=== PATIENT | female | born 1955 | race Caucasian/White ===

== ENCOUNTER 2021-06-30 19:34 | Emergency (ER) | payer BC, SELFPAY ==
[2021-06-30] MEDS: MethylPREDNISolone 125 MG/2 ML Vial IV (19:42)
[2021-06-30] MEDS: DiphenhydrAMINE 50 MG/ML Syringe 25 MG IV (19:43)
[2021-06-30] MEDS: Famotidine 200 MG/20 ML MDV 20 MG in 0.9% Normal Saline (Pres. free 8 ML 300 MG IV (19:43)
[2021-06-30 19:46] VITALS: BP 169/96; PULSE 83; PULSE 90; RESP 22; RESP 23; TEMP 36.7; O2SAT 92; BMI 31.8
[2021-06-30 20:35] VITALS: BP 188/64; PULSE 86; RESP 19; O2SAT 94
[2021-06-30 21:00] VITALS: BP 183/70; PULSE 85; RESP 21; O2SAT 94
[2021-06-30 22:00] VITALS: BP 182/83; PULSE 85; RESP 17; O2SAT 92
[2021-06-30 23:00] VITALS: BP 162/76; PULSE 84; RESP 20; O2SAT 92
[2021-07-01] VITALS: BP 156/82; PULSE 84; RESP 18; O2SAT 91
--- NOTE | 2021-07-01 00:32 | EX.ED.DYSGE1 ---
HPI History of Present Illness Chief Complaint: Allergic Reaction Detail of Chief Complaint: Stung by 4 or 5 bees or wasps Informant: patient and spouse/S.O. 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 She is not been stung over 27 years. She not have an EpiPen. She was stung by 4 or 5 bees or wasps. She presents because of facial swelling, lip swelling, shortness of breath, she denies dysphonia. She does report lightheadedness. Prior similar symptoms: Yes (27 years ago when she was stung by a bee) Recent Illness/Hospitalization: No PFSH PFSH Home Medications metoprolol tartrate 25 mg PO DAILY 09/12/13 [History Last Taken 06/29/14 08:00] epinephrine [EpiPen] 0.3 mg IM Q10M PRN PRN #1 ea 07/01/21 [Rx Last Taken Unknown] famotidine [Pepcid] 20 mg PO BID #8 tab 07/01/21 [Rx Last Taken Unknown] prednisone 40 mg PO DAILY #8 tab 07/01/21 [Rx Last Taken Unknown] Allergy/AdvReac Type Severity Reaction Status Date / Time bee venom protein (honey bee) Allergy Angioedema Verified 06/30/21 19:35 latex Allergy Rash Verified 09/12/13 16:24 Penicillins Allergy Rash Verified 09/12/13 16:24 Sulfa (Sulfonamide Allergy Rash Verified 09/12/13 16:24 Antibiotics) Surgical History History of arthroplasty of right ankle History of cholecystectomy History of colon resection History of fusion of cervical spine History of hysterectomy Social History (Updated 07/01/21 @ 00:[address] Brett Sherman MD) household members: spouse housing: house Smoking Status: Never smoker alcohol intake: current alcohol intake frequency: other substance use type: does not use ROS ROS ED Constitutional Constitutional ED: Denies chills, fever(s), subjective or sweats Eyes Eyes: Reports other Details: Swelling of the upper lids and chemosis ; Denies blurry vision, change in vision or diplopia ENT ENT ED: Denies ear pain, rhinorrhea or sore throat Cardiovascular Cardiovascular: Reports palpitations; Denies chest pain, orthopnea or racing heartbeat Respiratory/Chest Respiratory/Chest: Reports dyspnea; Denies cough, dyspnea on exertion or orthopnea Gastrointestinal Gastrointestinal: Reports abdominal pain and nausea; Denies constipation, diarrhea or vomiting Genitourinary Genitourinary ED: Denies hematuria or urinary frequency Musculoskeletal Musculoskeletal: Denies arthralgias, myalgias or neck pain Integumentary Reports rash Neurologic Neurologic: Denies headache(s) or weakness Psychiatric Psychiatric: Reports anxiety Allergic/Immunologic Allergic/Immunologic ED: Reports mouth swelling, tongue swelling and urticaria EXAM Physical Exam Const Vital Signs: 06/30/21 19:46 06/30/21 20:35 06/30/21 21:00 Temperature 98.1 F Temperature Source Temporal Pulse Rate 90 86 85 Respiratory Rate 22 H 19 H 21 H Blood Pressure 169/96 H 188/64 H 183/70 H Blood Pressure Mean 120 105 107 Pulse Ox 92 94 94 Oxygen Delivery Method Room Air Room Air 06/30/21 22:00 06/30/21 23:00 07/01/21 00:00 Temperature Temperature Source Pulse Rate 85 84 84 Respiratory Rate 17 20 H 18 Blood Pressure 182/83 H 162/76 H 156/82 H Blood Pressure Mean 116 104 106 Pulse Ox 92 92 91 Oxygen Delivery Method Room Air Room Air Room Air Positive well nourished, well developed and obese General Appearance ED: well developed Nutritional Appearance: obese HEENT HEENT Narrative: Patient has angioedema of the face. The uvula is midline. There is no angioedema of the uvula soft palate. There is evidence of chemosis. Ears are normal. Nares patent. Eyes PERRL and EOMs intact bilaterally Eyes Narrative: Positive chemosis bilaterally. General Eye ED: Negative for pale conjunctiva or scleral icterus Neck no lymphadenopathy, supple and no JVD Neck Narrative: Trachea is midline. There is no inspiratory or expiratory stridor noted. Chest Wall inspection of chest normal Resp normal respiratory effort and clear to auscultation bilaterally Effort and Inspection: Negative for pain with movement Cardio regular rate, regular rhythm, S1 normal heart sound, S2 normal heart sound and no murmurs GI normal to inspection, nondistended, normoactive bowel sounds, non-tender and non-distended Palpation: soft Back/Spine no CVA tenderness Cervical Spine: Negative for cervical spine tenderness Thoracic Spine / Upper Back: Negative for thoracic spinal tenderness Extremity normal to inspection General Extremety ED: Yes edema; Negative for tenderness General Extremity: edema Neuro oriented x3, CN's II-XII intact bilaterally and no sensory deficits noted Sensorium / Orientation: alert Motor Exam: strength 5/5 throughout Psych mental status grossly normal Skin No no rashes or lesions noted Skin Narrative: Positive urticaria MDM MDM MDM Narrative Medical decision making narrative: Patient having allergic and phylactic reaction with angioedema. She was treated with epinephrine, H1 and H2 aaron and Solu-Medrol. She has been observed for 5 hours. She was was reassessed at 200 with improvement of rash and swelling. She was reassessed at 2130 with 50% reduction of angioedema and resolution of her rash. She was again evaluated at 2240. The chemosis resolved. The swelling has improved markedly. There is no respiratory distress. Patient was reassessed at 0030. She has minimal swelling of the left upper eyelid. There are no other objective findings. Patient was discharged to home with prescription for EpiPen, prednisone and Pepcid. Critical Care Time Critical Care Time: Yes Critical care time (excluding procedures): 30-74 minutes (31 minutes), Including time spent: (History, physical, documentation, initiation of therapy for anaphylactic reaction) and Discussing w/Patient &/or Family/Accounts Payable Analyst (Patient has been informed of the importance to carry her EpiPen at all times.) Discharge Plan Triage Chief Complaint: Allergic Reaction ED Provider: Brett Sherman Dx/Rx/DC Orders Clinical Impression: Anaphylactic reaction, Allergic angioedema Instructions: ED Anaphylaxis Prescriptions: New famotidine [Pepcid] 20 mg tablet 20 mg PO BID Qty: 8 RF: 0 prednisone 20 mg tablet 40 mg PO DAILY Qty: 8 RF: 0 epinephrine [EpiPen] 0.3 mg/0.3 mL auto-injector 0.3 mg IM Q10M PRN PRN (Reason: anaphylaxis) Qty: 1 RF: 0 No Action metoprolol tartrate 25 MG tablet 25 mg PO DAILY RF: 0 Primary Care Provider: [facility] Doctor,Out of Referrals: [facility] Doctor,Out of [Primary Care Provider] - As Needed Disposition Disposition: Home, Self Care
[2021-07-01 00:54] VITALS: BP 150/80; PULSE 85; RESP 16; O2SAT 92
== END 2021-07-01 00:55 | disposition home or self-care (01) ==
PROVIDERS: Emergency Provider Emergency Medicine
DX: T78.3XXA Angioneurotic edema, initial encounter (principal); T63.441A Toxic effect of venom of bees, accidental (unintentional), initial encounter; T78.2XXA Anaphylactic shock, unspecified, initial encounter; E66.9 Obesity, unspecified
CPT/HCPCS: 96372; 96374; 96375; 99283; J7030; A4216; J3490

== ENCOUNTER 2025-02-11 18:55 | Emergency (ER) | payer BC, SELFPAY ==
[2025-02-11 18:56] VITALS: BP 214/81; PULSE 72; RESP 19; TEMP 36.2; O2SAT 98; BMI 39.3
--- NOTE | 2025-02-11 19:37 | EKG12_ITS ---
Test Reason : HOEHNE Blood Pressure : */* mmHG Vent. Rate : 67 BPM Atrial Rate : 67 BPM P-R Int : 186 ms QRS Dur : 74 ms QT Int : 436 ms P-R-T Axes : 51 -6 56 degrees QTcB Int : 460 ms Normal sinus rhythm Normal ECG Confirmed by LEXI GUTIERREZ, OLGA ([id number]), field map editor VIKTOR CHRISTY ([id number]) on 02/12/2025 8:08:25 AM Referred By: ABD PAIN Confirmed By: OLGA ELLIOTT MD
--- NOTE | 2025-02-11 19:39 | EDS_ITS ---
HPI <NADINE Louie - Last Filed: 02/11/25 22:17> History of Present Illness Chief Complaint: Abd Pain Narrative Narrative: 69-year-old female with PMH of HTN, diverticulitis has had 3 to 4 weeks of upper abdominal pain that feels like a tight bandlike pain. It it is constant but seems to be gradually worsening. When symptoms started she saw her community health program coordinator in [place] and had a normal EKG and echocardiogram and he did not think it was cardiac related. The only thing she has noticed is slightly worsened her symptoms and is drinking coffee so she switched to tea. She has no increased pain with food and no nausea or vomiting. She has had normal bowel movements without melena or hematochezia. No urinary symptoms. PFSH <NADINE Louie - Last Filed: 02/11/25 22:17> PFSH Home Medications ?Medication ?Instructions ?Recorded ?Last Taken ?Type metoprolol tartrate 25 mg tablet 50 mg PO DAILY 06/29/14 08:00 History epinephrine 0.3 mg/0.3 mL 0.3 mg (0.3 mL) IM Q10M PRN PRN 07/01/21 Unknown Rx injection, auto-injector (EpiPen) anaphylaxis #1 ea losartan 100 mg tablet 100 mg PO DAILY 02/11/25 Unk nown History pantoprazole 20 mg tablet,delayed 20 mg PO BID #28 tab s 02/11/25 Unknown Rx release (Protonix) pravastatin 20 mg tablet 20 mg PO DAILY 02/11/25 Unkn own History sucralfate 1 gram tablet (Carafate) 1 g PO Q6H #56 tab s 02/11/25 Unknown Rx Allergy/AdvReac Type Severity Reaction Status Date / Time bee venom protein (honey bee) Allergy Angioedema Verified 02/11/25 18:55 latex Allergy Rash Verified 02/11/25 18:55 Penicillins Allergy Rash Verified 02/11/25 18:55 Sulfa (Sulfonamide Allergy Rash Verified 02/11/25 18:55 Antibiotics) Surgical History History of arthroplasty of right ankle History of cholecystectomy History of colon resection History of fusion of cervical spine History of hysterectomy Social History (Updated 08/25/21 @ 00:[address] Brett Sherman MD) household members: spouse housing: house Smoking Status: Never smoker alcohol intake: current alcohol intake frequency: other substance use type: does not use ROS <NADINE Louie - Last Filed: 02/11/25 22:17> ROS ED ROS Narrative Constitutional: Negative for fever, chills, malaise. CVS: Negative for palpitations, syncope. Respiratory: Negative for shortness of breath, cough. GI: Positive for abdominal pain. No vomiting or diarrhea. : Negative for dysuria, hematuria or frequency. EXAM <NADINE Louie - Last Filed: 02/11/25 22:17> Physical Exam Narrative Exam Narrative: CONST: Patient sitting in no acute distress. EYES: Normal inspection. NECK: Normal inspection. RESP: No respiratory distress, CTAB. CVS: Regular rate and rhythm, no murmur, no gallop. ABD: Soft with epigastric tenderness, no guarding or rebound, nondistended, no hepatosplenomegaly. SKIN: Color normal, no rash, warm, dry, intact. EXTREMITIES: Normal appearance, no pedal edema. NEURO: Alert and answering questions appropriately. PSYCH: Normal affect. Const Vital Signs: 02/11/25 18:56 02/11/25 20:17 02/11/25 22:00 Temperature 97.1 F L Temperature Source Temporal Pulse Rate 72 63 Respiratory Rate 19 H 20 H Blood Pressure 214/81 H 191/69 H 150/47 H Blood Pressure Mean 125 109 77 Pulse Ox 98 95 Oxygen Delivery Method Room Air Room Air <Dr. Elia Anderson DO - Last Filed: 02/11/25 23:15> Physical Exam Const Vital Signs: 02/11/25 18:56 02/11/25 20:17 02/11/25 22:00 Temperature 97.1 F L Temperature Source Temporal Pulse Rate 72 63 Respiratory Rate 19 H 20 H Blood Pressure 214/81 H 191/69 H 150/47 H Blood Pressure Mean 125 109 77 Pulse Ox 98 95 Oxygen Delivery Method Room Air Room Air MDM <NADINE Louie - Last Filed: 02/11/25 22:17> MDM MDM Narrative Medical decision making narrative: History gathered from: Patient and spouse Differential includes but not limited to GERD, PUD, pancreatitis, diverticulitis 69-year-old female presents with 1 month of gradually worsening upper abdominal pain. She appears well and nontoxic. She is hypertensive with otherwise stable vital signs. She took her morning blood pressure meds but is due for her evening doses. Normal cardiopulmonary exam. She has midline epigastric tenderness without peritoneal signs. CBC, CMP, and lipase are unremarkable. CT scan is pending. EKG is nonischemic and troponin is 6. She also reports having an outpatient cardiology workup with EKG/echo after the symptoms started which was negative. Lab Data Attestation: I reviewed the patient's lab results. Labs: Laboratory Results - last 24 hr 02/11/25 02/11/25 20:00 22:25 WBC 7.5 RBC 4.10 L Hgb 12.2 Hct 36.5 L MCV 89.0 MCH 29.8 MCHC 33.4 RDW Std Deviation 41.2 RDW Coeff of [place] 12.6 Plt Count 212 MPV 10.0 Immature Gran % (Auto) 0.400 Neut % (Auto) 48.0 Lymph % (Auto) 40.1 Ramsey % (Auto) 8.3 Eos % (Auto) 2.7 Baso % (Auto) 0.5 Absolute Neuts (auto) 3.6 Absolute Lymphs (auto) 3.00 Nucleated RBC % 0 Sodium 138 Potassium 3.7 Chloride 102 Carbon Dioxide 23.3 Anion Gap 13 BUN 15 Creatinine 0.70 Estim Creat Clear Calc 77.24 Est GFR (MDRD) Non-Af 94 BUN/Creatinine Ratio 20.7 H Glucose 157 H Calcium 9.8 Total Bilirubin 0.24 AST 19 ALT 21 Alkaline Phosphatase 110 H Troponin T High Sens 6 Troponin T Hi Sens 2 Hr 6 Total Protein 7.4 Albumin 3.9 Globulin 3.5 Albumin/Globulin Ratio 1.1 Lipase 10 L Radiography Diagnostic Testing: Clinical Impression(s) from Imaging Studies Abdomen/Pelvis CT 02/11/25 21:29 IMPRESSION: No acute findings in the abdomen and pelvis. Reading Location: [facility] <Dr. Elia Anderson DO - Last Filed: 02/11/25 23:15> [facility] History & Record Review Discussion w/independent historian: Patient and Significant other Lab Data Labs: Laboratory Results - last 24 hr 02/11/25 02/11/25 20:00 22:25 WBC 7.5 RBC 4.10 L Hgb 12.2 Hct 36.5 L MCV 89.0 MCH 29.8 MCHC 33.4 RDW Std Deviation 41.2 RDW Coeff of [place] 12.6 Plt Count 212 MPV 10.0 Immature Gran % (Auto) 0.400 Neut % (Auto) 48.0 Lymph % (Auto) 40.1 Ramsey % (Auto) 8.3 Eos % (Auto) 2.7 Baso % (Auto) 0.5 Absolute Neuts (auto) 3.6 Absolute Lymphs (auto) 3.00 Nucleated RBC % 0 Sodium 138 Potassium 3.7 Chloride 102 Carbon Dioxide 23.3 Anion Gap 13 BUN 15 Creatinine 0.70 Estim Creat Clear Calc 77.24 Est GFR (MDRD) Non-Af 94 BUN/Creatinine Ratio 20.7 H Glucose 157 H Calcium 9.8 Total Bilirubin 0.24 AST 19 ALT 21 Alkaline Phosphatase 110 H Troponin T High Sens 6 Troponin T Hi Sens 2 Hr 6 Total Protein 7.4 Albumin 3.9 Globulin 3.5 Albumin/Globulin Ratio 1.1 Lipase 10 L Radiography Diagnostic Testing: Clinical Impression(s) from Imaging Studies Abdomen/Pelvis CT 02/11/25 21:29 IMPRESSION: No acute findings in the abdomen and pelvis. Reading Location: [facility] Treatment and Re-Evaluation :: I have personally performed a face to face assessment of the patient and have reviewed the ANISH Note. I performed a substantive portion of the visit including all aspects of the following. My garcia findings include: History is 69-year-old female presenting with recurrent upper abdominal discomfort. Patient's had cardiac workup that was negative. She has a prior cholecystectomy. Denies black or bloody stools. She notes hypertension dwayne ght. She is not on a PPI. Exam is patient is hypertension that has come down. Patient is alert no acute distress. Nonsurgical abdomen. Equal pulses in the upper and lower extremity Medical Decison Making this does not sound like mesenteric ischemia. I do not see evidence of pancreatitis or biliary disease. No elevated LFTs. She is not anemic cardiac workup is negative. I do wonder if this could be gastritis gastric ulcer or duodenal ulcer/GI pathology. I recommend placing her on a PPI and Carafate. Would have her follow-up for endoscopy/GI evaluation Discharge Plan Triage Chief Complaint: Abd Pain ED Midlevel Provider: Nikky Lara ED Provider: Elia Anderson Dx/Rx/DC Orders Clinical Impression: Epigastric abdominal pain Instructions: ED Gastritis (Adult) Prescriptions: New pantoprazole [Protonix] 20 mg tablet,delayed release (DR/EC) 20 mg PO BID Qty: 28 0RF sucralfate [Carafate] 1 gram tablet 1 g PO Q6H Qty: 56 0RF No Action metoprolol tartrate 25 MG tablet 50 mg PO DAILY Patient Comments: blood pressure *need one dose this evening epinephrine [EpiPen] 0.3 mg/0.3 mL auto-injector 0.3 mg IM Q10M PRN PRN (Reason: anaphylaxis) Qty: 1 0RF Rx Instructions: for 2 doses losartan 100 mg tablet 100 mg PO DAILY pravastatin 20 mg tablet 20 mg PO DAILY Primary Care Provider: ALKA EMERSON Referrals: Friend,Kit, DO [Med Staff - Active Staff] - As soon as possible (for GI Evaluation) Care Physician,No Primary [Non-Staff] - Print Language: Latvian Disposition Disposition: Home, Self Care
[2025-02-11] MEDS: Ondansetron 4 MG/2 ML Vial IV (19:58)
[2025-02-11] MEDS: Morphine 4 MG/ML Syringe IV (19:59)
[2025-02-11 20:12] LABS: Absolute Neutrophil Count 3.6 X10^3/uL (2.0-7.7); Basophil# 0.04 X10^3/uL; Basophil% 0.5 % (0-1); Eosinophils% 2.7 % (0-5); Hematocrit 36.5 % (37-47); Hemoglobin 12.2 g/dL (12.0-15.0); Lymphocyte % 40.1 % (19-41); Mean Corp Hgb Conc 33.4 g/dL (32-36); Mean Corpuscular Hgb 29.8 pg (27.0-32.0); Monocyte# 0.62 X10^3/uL; Monocyte% 8.3 % (0-10); NRBC Flagged by Analyzer 0 % (0-5); Neutrophil # 3.59 X10^3/uL (2.7-7.7); Platelet Count 212 K/mm3 (150-450); RBC Distribution Width CV 12.6 % (11.6-14.6); RBC Distribution Width SD 41.2 fl (35.1-43.9); White Blood Count 7.5 K/mm3 (4.4-11.0)
[2025-02-11 20:17] VITALS: BP 191/69
[2025-02-11 21:04] LABS: ALB/GLOB Ratio 1.1 RATIO (0.9-2.4); AST(SGOT) 19 U/L (<=31); Alanine Aminotransfer ALT/SGPT 21 U/L (<=34); Albumin, Serum 3.9 g/dL (3.4-4.8); Alkaline Phosphatase 110 U/L (35-104); Anion Gap 13 (5-15); BUN 15 mg/dL (4-19); BUN/Creat Ratio 20.7 RATIO (10-20); Calcium,Total 9.8 mg/dL (7.6-11.0); Carbon Dioxide 23.3 mmol/L (21.0-32.0); Chloride 102 mmol/L (98-108); EST Glomerular Filtration Rate 94 (>60); Estimated Creatinine Clearance 77.24 ml/min (50-250); Globulin 3.5 g/dL (2.2-4.2); Glucose 157 mg/dL (70-99); Lipase 10 U/L (13-75); Potassium 3.7 mmol/L (3.3-5.1); Protein, Total 7.4 g/dL (5.9-8.4); Sodium Level 138 mmol/L (133-145); Total Bilirubin 0.24 mg/dL (0.00-1.30); Troponin T High Sensitivity 6 ng/L (<=14)
--- NOTE | 2025-02-11 21:29 | CT_ITS ---
PROCEDURE: ABDOMEN/PELVIS W IV CONT ONLY 02/11/2025 REASON FOR EXAM: EPIGASTRIC PAIN TECHNIQUE: Abdomen and pelvis CT with intravenous contrast. Coronal and Sagittal reconstruction series were provided. PATIENT PREPARATION: Per protocol ORAL CONTRAST TYPE: None. AMOUNT: mL CONTRAST: Omnipaque 350 VOLUME: 100 mL Not Provided Gauge IV One or more dose reduction techniques were used (e.g., Automated exposure control, adjustment of the mA and/or kV according to patient size, use of iterative reconstruction technique. COMPARISON: None FINDINGS: Lung bases: Mild bibasilar atelectasis. Mild cardiomegaly. Liver: Hepatic steatosis. No focal lesion. Gallbladder: No intrahepatic ductal dilation. Common bile duct measures 10 mm. Spleen: Normal size. Pancreas: Normal size without evidence of mass surrounding inflammation or ductal dilation. Adrenals: Unremarkable Kidneys: Normal renal sizes. No hydronephrosis. Bilateral simple cysts. Bladder: Urinary bladder is unremarkable. Reproductive Organs: No pelvic mass. Bowel: Stomach is unremarkable. No bowel dilation or wall thickening. Prior postoperative changes partial colectomy with a rectosigmoid anastomosis. Appendix: Normal appendix. Lymph nodes: No suspicious lymph node enlargement. Vasculature: Mild diffuse atherosclerotic calcifications are noted. Peritoneum / Retroperitoneum: No ascites. No pneumoperitoneum. Bones: No suspicious osseous lesions. CT/Abdomen/Pelvis W IV Cont ONLY IMPRESSION: No acute findings in the abdomen and pelvis. Reading Location[facility]
[2025-02-11] MEDS: Famotidine 20 MG Tablet PO (21:40)
[2025-02-11] MEDS: Ketorolac 15 MG/ML Vial IV (21:40)
[2025-02-11 22:00] VITALS: BP 150/47; PULSE 63; RESP 20; O2SAT 95
[2025-02-11 22:53] LABS: Troponin T High Sens 2 HR 6 ng/L (<=14)
[2025-02-11] MEDS: Lidocaine 2% Viscous15 ML UDC 15 ML PO (23:30)
[2025-02-11] MEDS: Mag Hydrox/Al Hydrox/Simeth 30 ML UDC PO (23:30)
[2025-02-11] MEDS: Losartan Potassium 100 MG Tablet PO (23:30)
[2025-02-11] MEDS: Metoprolol Tartrate 50 MG Tablet PO (23:30)
[2025-02-11 23:53] VITALS: BP 174/55; O2SAT 94
== END 2025-02-12 00:13 | disposition home or self-care (01) ==
PROVIDERS: Physician Assistant; Emergency Provider Emergency Medicine; Visit Provider Emergency Medicine
DX: R10.13 Epigastric pain (principal); I10 Essential (primary) hypertension
CPT/HCPCS: 74177; 80053; 83690; 84484; 85025; 93005; 96374; 96375; 99282; Q9967; A4216; J2405

== ENCOUNTER 2025-05-17 11:09 | Emergency (ER) | payer MEDICARE, OTHER, SELFPAY ==
[2025-05-17 11:09] VITALS: BP 182/71; PULSE 81; RESP 14; TEMP 36.8; O2SAT 97; BMI 37.8
--- NOTE | 2025-05-17 11:54 | ED.VIS.GI ---
HPI HPI - GI History of Present Illness Chief Complaint: Abd Pain Informant: patient Abdominal Pain/Flank Pain Onset: Weeks (1) Context: Sudden Onset Timing: Continuous Quality: Dull and Sharp Location: Epigastric Worsened by: Nothing Relieved by: Nothing Nausea/Vomiting/Emesis GI Symptom: Positive for Nausea; Negative for Vomiting Diarrhea/Melena/Hematochezia GI Symptom: Negative for Diarrhea, Melena or Hematochezia Associated Symptoms Associated Symptoms: Negative for Dysuria, Frequency or Hematuria Narrative Narrative: Patient presents with abdominal pain that began 1 week ago. Patient states it began rather suddenly. Patient states it has been constant. Patient describes her pain as sharp and dull. Patient states her pain is over the epigastric area. Patient states nothing makes it better and nothing makes it worse. Patient admits to some nausea but denies any vomiting. Patient denies any diarrhea, melena, or hematochezia. Patient denies any dysuria, frequency, or hematuria. Patient states she had a recent endoscopy and was diagnosed with peptic ulcer disease and erosive gastritis. Prior similar symptoms: Yes PFSH [facility] Medical History (Updated 05/17/25 @ 13:[address] Conner Horta, DO) Erosive gastritis Gastric ulcer Home Medications ?Medication ?Instructions ?Recorded ?Last Taken ?Type metoprolol tartrate 25 mg tablet 50 mg PO DAILY 09/12/13 06/29/14 08:00 History epinephrine 0.3 mg/0.3 mL 0.3 mg (0.3 mL) IM Q10M PRN PRN 07/01/21 Unknown Rx injection, auto-injector (EpiPen) anaphylaxis #1 ea losartan 100 mg tablet 100 mg PO DAILY 02/11/25 Unknown History pantoprazole 20 mg tablet,delayed 20 mg PO BID #28 tabs 02/11/25 Unknown Rx release (Protonix) pravastatin 20 mg tablet 20 mg PO DAILY 02/11/25 Unknown History sucralfate 1 gram tablet (Carafate) 1 g PO Q6H #56 tabs 05/17/25 Unknown Rx Allergy/AdvReac Type Severity Reaction Status Date / Time bee venom protein (honey bee) Allergy Angioedema Verified 05/17/25 11:10 latex Allergy Rash Verified 05/17/25 11:10 Penicillins Allergy Rash Verified 05/17/25 11:10 Sulfa (Sulfonamide Allergy Rash Verified 05/17/25 11:10 Antibiotics) Surgical History History of fusion of cervical spine History of hysterectomy History of arthroplasty of right ankle History of cholecystectomy History of colon resection Social History (Updated 07/01/21 @ 00:[address] Brett Sherman MD) household members: spouse housing: house Smoking Status: Never smoker alcohol intake: current alcohol intake frequency: other substance use type: does not use EXAM Physical Exam Const Vital Signs: 05/17/25 11:09 05/17/25 13:09 Temperature 98.3 F Temperature Source Temporal Pulse Rate 81 66 Respiratory Rate 14 Blood Pressure 182/71 H 141/67 H Blood Pressure Mean 108 91 Pulse Ox 97 94 Oxygen Delivery Method Room Air Room Air MDM MDM MDM Narrative Medical decision making narrative: Differential diagnosis includes peptic ulcer disease, duodenal ulcer, pancreatitis, bowel obstruction, perforation, electrolyte abnormality, urinary tract infection, and pyelonephritis. CBC will be obtained to assess for leukocytosis and anemia. Comprehensive metabolic profile will be obtained to assess for hepatic function, renal function, and electrolyte abnormality. Lipase will be obtained to assess for pancreatitis. Urinalysis will be obtained to assess for urinary tract infection and hematuria. CT scan of the abdomen and pelvis will be obtained to assess for bowel obstruction, perforation, and pancreatitis. History & Record Review Additional record(s) reviewed:: Prior outpatient record, Prior ED visit and Prior labs Lab Data Attestation: I reviewed the patient's lab results. Lab results narrative: CBC was reviewed and was within normal limit. Comprehensive metabolic profile was reviewed. Glucose was mildly elevated at 183. The remainder is within normal limits. Urinalysis was reviewed. Leukocyte esterase was 25. There are 0-5 white blood cells and 5-10 epithelial cells. There is 2+ bacteria. Labs: Laboratory Results - last 24 hr 05/17/25 12:25 WBC 8.4 RBC 4.27 Hgb 13.2 Hct 38.8 MCV 90.9 MCH 30.9 MCHC 34.0 RDW Std Deviation 42.3 RDW Coeff of [place] 12.9 Plt Count 253 MPV 10.6 Immature Gran % (Auto) 0.200 Neut % (Auto) 63.0 Lymph % (Auto) 29.3 [place] % (Auto) 5.4 Eos % (Auto) 2.0 Baso % (Auto) 0.1 Absolute Neuts (auto) 5.3 Absolute Lymphs (auto) 2.46 Nucleated RBC % 0 Sodium 138 Potassium 4.1 Chloride 103 Carbon Dioxide 21.7 Anion Gap 13 BUN 12 Creatinine 0.80 Estim Creat Clear Calc 74.63 Est GFR (MDRD) Non-Af 80 BUN/Creatinine Ratio 15.1 Glucose 183 H Calcium 9.2 Total Bilirubin 0.29 AST 27 ALT 30 Alkaline Phosphatase 102 Total Protein 7.6 Albumin 4.0 Globulin 3.6 Albumin/Globulin Ratio 1.1 Urine Color Yellow Urine Clarity Sl. Cloudy Urine pH 5.0 Ur Specific [place] 1.030 Urine Protein 30 H Urine Glucose (UA) Normal Urine Ketones 5 H Urine Occult Blood Negative Urine Nitrite Negative Urine Bilirubin Negative Urine Urobilinogen Normal Ur Leukocyte Esterase 25 H Urine RBC 0 SEEN Urine WBC 0-5 SEEN Ur Squamous Epith Cells 5-10 SEEN Urine Bacteria 2+ Urine Mucus 0 SEEN Radiography Diagnostic Testing: Clinical Impression(s) from Imaging Studies Abdomen/Pelvis CT 05/17/25 12:18 IMPRESSION: 1. Normal appendix. 2. No bowel obstruction or pneumoperitoneum. 3. Hepatomegaly with fatty infiltration. 4. Fecal retention in the colon consistent with constipation. 5. No obstructive uropathy. Reading Location: [facility] CT scan of the abdomen and pelvis was obtained. There is no evidence of bowel obstruction or perforation. There is no free air or free fluid. There is fecal retention in the colon consistent with constipation. This was interpreted by the radiologist and was also independently reviewed by myself. Treatment and Re-Evaluation :: Patient was given IV fluids, Pepcid, Zofran, and morphine. Patient states she was seen here in February and morphine did not work for her pain. Patient states she was given medication that began with a T which helped. I reviewed her prior records. This was Toradol. Advised the patient that Toradol may make her peptic ulcer disease worse. Because of this, this was withheld at this time. Patient is agreeable to take morphine at this time. Patient was advised of her findings. Patient was given a prescription for Carafate. Patient was instructed to follow-up with her primary care physician and corporate securities research analyst in 5 to 7 days. Patient was instructed to continue with her omeprazole. Patient was instructed to return if worse in any way. Patient understood and was agreeable with the plan. All questions were answered. Discharge Plan Triage Chief Complaint: Abd Pain ED Provider: Conner Horta Dx/Rx/DC Orders Clinical Impression: Abdominal pain, epigastric, Peptic ulcer disease Instructions: ED Peptic Ulcer, ED Epigastric Pain Uncertain Cause Prescriptions: Continued sucralfate [Carafate] 1 gram tablet 1 g PO Q6H Qty: 56 0RF No Action metoprolol tartrate 25 MG tablet 50 mg PO DAILY Patient Comments: blood pressure *need one dose this evening epinephrine [EpiPen] 0.3 mg/0.3 mL auto-injector 0.3 mg IM Q10M PRN PRN (Reason: anaphylaxis) Qty: 1 0RF Rx Instructions: for 2 doses losartan 100 mg tablet 100 mg PO DAILY pravastatin 20 mg tablet 20 mg PO DAILY pantoprazole [Protonix] 20 mg tablet,delayed release (DR/EC) 20 mg PO BID Qty: 28 0RF Primary Care Provider: ALKA EMERSON Referrals: ALKA EMERSON [Other] - 5-7 Days Print Language: Lithuanian Disposition Disposition: Home, Self Care
--- NOTE | 2025-05-17 12:18 | CT_ITS ---
EXAM: CT Abdomen and Pelvis With Intravenous Contrast CLINICAL INDICATION: ABDOMINAL PAIN TECHNIQUE: Axial computed tomography images of the abdomen and pelvis with intravenous contrast. This CT exam was performed using one or more of the following dose reduction techniques: automated exposure control, adjustment of the mA and/or kV according to patient size, and/or use of iterative reconstruction technique. COMPARISON: CT Abdomen Pelvis dated 02/11/2025 FINDINGS: LUNG BASES: Unremarkable. No mass. No consolidation. ABDOMEN: LIVER: Hepatomegaly with fatty infiltration. GALLBLADDER AND BILE DUCTS: Gallbladder is surgically absent. No ductal dilation. PANCREAS: Unremarkable. No mass. No ductal dilation. SPLEEN: Unremarkable. No splenomegaly. ADRENALS: Unremarkable. No mass. KIDNEYS AND URETERS: Hypodense lesions of both kidneys, likely cysts. No stones within either kidney. No hydronephrosis. STOMACH AND BOWEL: Fecal retention in the colon consistent with constipation. Evidence of prior colonic surgery reanastomosis in the right hemipelvis. No mucosal thickening. No bowel obstruction or pneumoperitoneum. PELVIS: APPENDIX: Normal appendix. BLADDER: Unremarkable. No mass. REPRODUCTIVE: Unremarkable as visualized. ABDOMEN and PELVIS: INTRAPERITONEAL SPACE: See above. BONES/JOINTS: No acute fracture. No dislocation. SOFT TISSUES: Unremarkable. VASCULATURE: Scattered calcified atherosclerotic disease of aorta. No abdominal aortic aneurysm. LYMPH NODES: Unremarkable. No enlarged lymph nodes. CT/Abdomen/Pelvis W IV Cont ONLY IMPRESSION: 1. Normal appendix. 2. No bowel obstruction or pneumoperitoneum. 3. Hepatomegaly with fatty infiltration. 4. Fecal retention in the colon consistent with constipation. 5. No obstructive uropathy. Reading Location[facility]
[2025-05-17] MEDS: Lidocaine 2% Viscous15 ML UDC 15 ML PO (12:34)
[2025-05-17] MEDS: 0.9% Normal Saline (1000mL) 1,000 ML 999 ML IV (12:36)
[2025-05-17 12:49] LABS: Mucous, Urine 0 SEEN /hpf (<or=2+); Red Blood Cells-Urine 0 SEEN /hpf (0-5)
[2025-05-17 12:51] LABS: Hematocrit 38.8 % (37-47); Hemoglobin 13.2 g/dL (12.0-15.0); Immature Granulocytes Count 0.020 X10^3/uL (0.0-0.0); Mean Corp Hgb Conc 34.0 g/dL (32-36); Mean Corpuscular Volume 90.9 fL (81-99); Mean Platelet Vol. 10.6 fl (6.2-12.0); NRBC Flagged by Analyzer 0 % (0-5); Platelet Count 253 K/mm3 (150-450); RBC Distribution Width CV 12.9 % (11.6-14.6); RBC Distribution Width SD 42.3 fl (35.1-43.9); Red Blood Count 4.27 M/mm3 (4.2-5.4); White Blood Count 8.4 K/mm3 (4.4-11.0)
[2025-05-17 12:59] LABS: Color, Urine Yellow (Yellow); Glucose, Dipstick Normal (Normal); Ketone-Dipstick 5 mg/dl (Negative); Leukocyte Esterase-Dipstick 25 /ul (Negative); Nitrite-Dipstick Negative (Negative); Occult Blood-Urine Negative /ul (Negative); Protein-Dipstick 30 mg/dl (Negative); Specific Gravity, Urine 1.030 (1.002-1.030); Urine Bilirubin Dipstick Negative (Negative)
[2025-05-17 13:09] VITALS: BP 141/67; PULSE 66; O2SAT 94
[2025-05-17 13:28] LABS: Squamous Epithelial Cells - UA 5-10 SEEN /hpf (5-10)
[2025-05-17 13:31] LABS: AST(SGOT) 27 U/L (<=31); Alanine Aminotransfer ALT/SGPT 30 U/L (<=34); Albumin, Serum 4.0 g/dL (3.4-4.8); Alkaline Phosphatase 102 U/L (35-104); Anion Gap 13 (5-15); BUN 12 mg/dL (4-19); BUN/Creat Ratio 15.1 RATIO (10-20); Calcium,Total 9.2 mg/dL (7.6-11.0); Carbon Dioxide 21.7 mmol/L (21.0-32.0); Chloride 103 mmol/L (98-108); Estimated Creatinine Clearance 74.63 ml/min (50-250); Globulin 3.6 g/dL (2.2-4.2); Glucose 183 mg/dL (70-99); Potassium 4.1 mmol/L (3.3-5.1)
[2025-05-17] MEDS: Famotidine 200 MG/20 ML MDV 20 MG in 0.9% Normal Saline (Pres. free 8 ML 300 MG IV (15:08)
[2025-05-17 15:20] VITALS: BP 147/64; PULSE 64; RESP 18; TEMP 37.1; O2SAT 94
== END 2025-05-17 15:51 | disposition home or self-care (01) ==
PROVIDERS: Emergency Provider Emergency Medicine; Referring Provider Emergency Medicine; Visit Provider Emergency Medicine
DX: R10.13 Epigastric pain (principal); R11.0 Nausea; K27.9 Peptic ulcer, site unspecified, unspecified as acute or chronic, without hemorrhage or perforation
CPT/HCPCS: 74177; 80053; 81001; 85025; 96361; 96374; 96375; 99284; Q9967; A4216; J2405